=== PATIENT | male | born 1985 | race Caucasian/White ===

== ENCOUNTER 2018-12-13 14:44 | Inpatient (IN) | payer BC ==
[~2018-12-13 14:44] MED LIST: Dexamethasone 20 MG/5 ML VIAL ONE; ISOVUE-370 76%-LOCM 1 ML ONE; Ondansetron PF 4 MG/2 ML Vial ONE; PROPOFOL 200 MG/20 ML VIAL ONE; Rocuronium Bromide 10 MG/ML (10ML VIAL) ONE
[2018-12-13] MEDS ORDERED: Fentanyl 100 MCG/2 ML VIAL ONE ×4 (14:50→17:49)
[2018-12-13] MEDS ORDERED: Adacel (T-DAP) 0.5 ML SYRINGE ONE (15:00)
[2018-12-13 15:08] LABS: #Eosinphils 0.1 thou/uL (0.0-0.7); #Lymphocytes 1.8 thou/uL (1.20-3.40); #Monocytes 1.1 thou/uL (0.11-0.59); #Neutrophils 13.3 thou/uL (1.40-6.50); %Basophils 0.1 % (0.0-1.0); %Eosinophils 0.4 % (0.0-10.0); %Lymphocytes 11.3 % (21.0-51.0); %Monocytes 6.6 % (0.0-10.0); %Neutrophils 81.7 % (42.0-75.0); Hemoglobin 15.3 g/dL (14.0-18.0); Mean Corpuscular HGB CONC 35.3 g/dL (32.0-36.0); Mean Corpuscular Hemoglobin 32.7 pg (27.0-31.0); Mean Corpuscular Volume 92.8 fL (78.0-98.0); Mean Platelet Volume 7.5 fL (7.4-10.4); Platelet Count 221 thou/uL (130-400); RBC Distribution Width 11.7 % (11.5-14.5); Red Blood Cell (RBC) Count 4.67 mill/uL (4.70-6.10); White Blood Cell (WBC) Count 16.3 thou/uL (4.8-10.8)
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
[2018-12-13 15:25] LABS: PTT 23.3 SEC (22.9-36.1); Prothrombin Time 12.8 SEC (12.0-14.7)
[2018-12-13 15:29] LABS: ALT (SGPT) 22 U/L (8-55); AST (SGOT) 27 U/L (5-34); Albumin 4.5 g/dL (3.5-5.0); Alkaline Phosphatase 57 U/L (40-150); Anion Gap 15 mmol/L (10-20); BUN (Urea Nitrogen) 18 mg/dL (8.9-20.6); Bilirubin, Total 0.6 mg/dL (0.2-1.2); Calc. Creatinine Clearance 0 mL/min (70-130); Calcium 9.1 mg/dL (7.8-10.44); Carbon Dioxide 20 mmol/L (22-29); Chloride 107 mmol/L (98-107); Estimated GFR-MDRD 73; Globulin 2.7 g/dL (2.4-3.5); Glucose 108 mg/dL (70-105); Potassium 3.6 mmol/L (3.5-5.1); Protein, Total 7.2 g/dL (6.0-8.3); Sodium 138 mmol/L (136-145)
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
[2018-12-13] MEDS ORDERED: Ondansetron PF 4 MG/2 ML Vial ONE (16:21)
[2018-12-13] MEDS ORDERED: Morphine 4 MG/ML VIAL ONE ×2 (16:21→23:42)
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
[2018-12-13] MEDS ORDERED: Ondansetron ODT 4 MG TAB PO PRN (16:42)
[2018-12-13] MEDS ORDERED: Dextrose 50% Abboject 50 ML SYRINGE SLOW IVP PRN (16:42)
[2018-12-13] MEDS ORDERED: Morphine 4 MG/ML VIAL SLOW IVP PRN (16:42)
[2018-12-13] MEDS ORDERED: hydrALAZINE 20 MG/ML VIAL SLOW IVP PRN (16:42)
[2018-12-13] MEDS ORDERED: Dextrose 5% in Water 1,000 ML IV PRN (16:42)
[2018-12-13] MEDS ORDERED: Promethazine HCl 25 MG/ML VIAL IM PRN ×3 (16:42→23:27)
[2018-12-13] MEDS ORDERED: Morphine 2 MG/ML SYRINGE SLOW IVP PRN (16:42)
[2018-12-13] MEDS ORDERED: Ondansetron PF 4 MG/2 ML Vial IVP PRN (16:42)
[2018-12-13] MEDS ORDERED: traMADol HCl 50 MG TAB PO PRN ×2 (17:03)
--- NOTE | 2018-12-13 17:11 | RAD ---
Exam:Left ankle 2 views HISTORY: Status post reduction COMPARISON: 12/13/2018 FINDINGS: Limited evaluation of fine bony detail due to fiberglass cast. Previous noted displaced fra cture fragment and dislocation of the tibiotalar articulation have significantly improved based on images provided. IMPRESSION: Improved alignment.
--- NOTE | 2018-12-13 17:14 | RAD ---
Exam:Left elbow 2 view HISTORY: Status post irrigation COMPARISON: None FINDINGS: Posttraumatic changes of the soft tissue edema remain. There is evidence of subcutaneous em physema. Multiple well-corticated densities do project along the medial aspect of the elbow, the level of the proximal ulna. Foreign bodies cannot be excluded. Possible fracture fragment of uncertai n etiology is once again noted, posterior to the distal humerus. IMPRESSION: Posttraumatic changes as above
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
[2018-12-13] MEDS ORDERED: Midazolam HCl 2 mg/2 ml Vial ONE (17:55)
[2018-12-13] MEDS ORDERED: Fentanyl 250 MCG/5 ML VIAL ONE (17:55)
[2018-12-13] MEDS ORDERED: Gentamicin 80 MG/2 ML VIAL ONE (19:22)
[2018-12-13] MEDS ORDERED: SODIUM CHLORIDE IVPB SCH (19:30)
[2018-12-13] MEDS ORDERED: PENICILLIN POTASSIUM IVPB SCH (19:30)
[2018-12-13] MEDS ORDERED: HYDROmorphone 2 MG/ML VIAL ONE ×2 (21:28→23:49)
--- NOTE | 2018-12-13 21:59 | RAD ---
Exam: Left elbow 2 views: HISTORY: Postoperative irrigation left elbow FINDINGS: 2 portable fluoroscopic spot films are presented. There is some posterior injury with at least one sm all of foreign body improved from the prior study. The 2 large dense opacifications have been removed. IMPRESSION: Post irrigation left elbow.
--- NOTE | 2018-12-13 22:00 | RAD ---
Left ankle 2 views: HISTORY: ORIF left ankle Placement of metal plate and screws and cable stabilizing the distal tibia and fibula. IMPRESSION: Status post ORIF stabilizing the distal fibula and tibia.
[2018-12-13] MEDS ORDERED: HYDROmorphone 2 MG/ML VIAL SLOW IVP PRN (23:27)
[2018-12-13] MEDS ORDERED: PACU-Morphine 4MG/ML VIAL SLOW IVP PRN (23:27)
[2018-12-13] MEDS ORDERED: Ondansetron HCl/PF 4 MG/2 ML Vial IVP PRN (23:27)
[2018-12-13] MEDS ORDERED: Promethazine HCl 25 MG/ML VIAL SLOW IVP PRN (23:27)
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
[2018-12-14] MEDS ORDERED: Fentanyl 100 MCG/2 ML VIAL ONE ×2 (00:24→00:53)
[2018-12-14] MEDS ORDERED: diphenhydrAMINE 50 MG/ML VIAL IM PRN (00:40)
[2018-12-14] MEDS ORDERED: diphenhydrAMINE 25 MG CAP PO PRN (00:40)
[2018-12-14] MEDS ORDERED: diphenhydrAMINE 50 MG/ML VIAL IVP PRN (00:40)
[2018-12-14] MEDS ORDERED: Promethazine HCl 25 MG/ML VIAL IM PRN (00:40)
[2018-12-14] MEDS ORDERED: Naloxone HCl 0.4 mg/ml Vial IV PRN (00:40)
[2018-12-14] MEDS ORDERED: Ondansetron PF 4 MG/2 ML Vial IVP PRN (00:40)
[2018-12-14] MEDS ORDERED: Morphine CADD 1 MG/ML CADD IVPB PRN (00:40)
[2018-12-14] MEDS ORDERED: Communication Order-Pharmacy FS SCH (00:45)
[2018-12-14] MEDS ORDERED: Ketorolac Tromethamine 30 MG/ML VIAL ONE (00:46)
[2018-12-14] MEDS ORDERED: Morphine Sulfate 100 MG in Dextrose 5% in Water 98 ML IV SCH (00:47)
[2018-12-14] MEDS: Acetaminophen 500 MG TAB PO SCH ×5 (02:42→23:07)
[2018-12-14] MEDS: Ibuprofen 800 MG TAB PO SCH ×4 (02:44→23:00)
[2018-12-14] MEDS: Famotidine 20 MG TAB PO SCH ×3 (02:44→22:58)
[2018-12-14] MEDS: PENICILLIN POTASSIUM IVPB SCH ×3 (03:20→17:26)
[2018-12-14] MEDS: SODIUM CHLORIDE IVPB SCH ×3 (03:20→17:26)
[2018-12-14] MEDS: CEFAZOLIN 2 GM in Premix Bag 1 BAG IVPB SCH ×3 (05:35→23:00)
[2018-12-14] MEDS: Sodium Chloride 0.9% 1,000 ML IV SCH ×2 (05:36→10:33)
[2018-12-14] MEDS: Ketorolac Tromethamine 30 MG/ML VIAL IVP SCH ×4 (05:36→23:07)
[2018-12-14 05:54] VITALS: BMI 33.2
[2018-12-14 07:22] LABS: Anion Gap 10 mmol/L (10-20); BUN (Urea Nitrogen) 12 mg/dL (8.9-20.6); Calc. Creatinine Clearance 190 mL/min (70-130); Calcium 8.1 mg/dL (7.8-10.44); Carbon Dioxide 24 mmol/L (22-29); Chloride 105 mmol/L (98-107); Estimated GFR-MDRD Greater than 90; Glucose 129 mg/dL (70-105); Potassium 4.2 mmol/L (3.5-5.1); Sodium 135 mmol/L (136-145)
[2018-12-14 07:47] LABS: #Monocytes 1.3 thou/uL (0.11-0.59); #Neutrophils 14.2 thou/uL (1.40-6.50); %Eosinophils 0.1 % (0.0-10.0); %Lymphocytes 5.9 % (21.0-51.0); %Monocytes 7.8 % (0.0-10.0); %Neutrophils 86.1 % (42.0-75.0); Hemoglobin 13.8 g/dL (14.0-18.0); Mean Corpuscular HGB CONC 34.1 g/dL (32.0-36.0); Mean Corpuscular Hemoglobin 32.5 pg (27.0-31.0); Mean Corpuscular Volume 95.3 fL (78.0-98.0); Mean Platelet Volume 7.9 fL (7.4-10.4); Platelet Count 193 thou/uL (130-400); RBC Distribution Width 11.7 % (11.5-14.5); Red Blood Cell (RBC) Count 4.25 mill/uL (4.70-6.10); White Blood Cell (WBC) Count 16.5 thou/uL (4.8-10.8)
--- NOTE | 2018-12-14 10:31 | RAD ---
LEFT ANKLE 3 VIEWS: Date: 12/13/18 HISTORY: Postop. FINDINGS: These are C-arm projections which show open reduction and internal fixation of a distal fibular fract ure with plate and screws. There is also a tension device across the tibia and fibula, and pin placem ent in the region of the medial malleolus. IMPRESSION: Postoperative changes of the ankle. POS: [facility]
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
[2018-12-14] MEDS: Cyclobenzaprine 10 MG TAB PO PRN (23:00)
[2018-12-15] MEDS: CEFAZOLIN 2 GM in Premix Bag 1 BAG IVPB SCH ×3 (05:44→21:33)
[2018-12-15] MEDS: Ketorolac Tromethamine 30 MG/ML VIAL IVP SCH (05:44)
[2018-12-15] MEDS: Ibuprofen 800 MG TAB PO SCH ×3 (05:44→21:33)
[2018-12-15] MEDS: Acetaminophen 500 MG TAB PO SCH ×2 (05:44→19:47)
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
[2018-12-15] MEDS ORDERED: Enoxaparin Sodium 40 MG/0.4 ML SYRINGE SC SCH ×2 (09:00→21:00)
[2018-12-15 09:24] LABS: Anion Gap 11 mmol/L (10-20); BUN (Urea Nitrogen) 9 mg/dL (8.9-20.6); Calc. Creatinine Clearance 233 mL/min (70-130); Calcium 8.2 mg/dL (7.8-10.44); Carbon Dioxide 21 mmol/L (22-29); Chloride 112 mmol/L (98-107); Estimated GFR-MDRD Greater than 90; Glucose 78 mg/dL (70-105); Potassium 4.2 mmol/L (3.5-5.1); Sodium 140 mmol/L (136-145)
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
[2018-12-15] MEDS ORDERED: Midazolam HCl 2 mg/2 ml Vial ONE (11:31)
[2018-12-15] MEDS ORDERED: Fentanyl 100 MCG/2 ML VIAL ONE ×3 (11:31→14:31)
[2018-12-15] MEDS ORDERED: CEFAZOLIN 2 GM in Premix Bag 1 BAG IVPB SCH (14:00)
[2018-12-15] MEDS ORDERED: Ondansetron HCl/PF 4 MG/2 ML Vial IVP PRN (14:29)
[2018-12-15] MEDS ORDERED: Promethazine HCl 25 MG/ML VIAL IM PRN (14:29)
[2018-12-15] MEDS ORDERED: Promethazine HCl 25 MG/ML VIAL SLOW IVP PRN (14:29)
[2018-12-15] MEDS ORDERED: HYDROcodone/Acetaminophen 10/325 mg Tablet PO PRN (14:59)
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
[2018-12-15] MEDS ORDERED: Bupivacaine HCl 0.5%/Epinephrine 1:200,000/PF 30 ml Vial ONE (15:58)
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
[2018-12-15] MEDS ORDERED: Lidocaine 1% PF 5 ML VIAL ONE (16:26)
[2018-12-15] MEDS ORDERED: PROPOFOL 200 MG/20 ML VIAL ONE (16:26)
[2018-12-15] MEDS ORDERED: Rocuronium Bromide 10 MG/ML (10ML VIAL) ONE (16:26)
[2018-12-15] MEDS: Fentanyl 100 MCG/2 ML VIAL SLOW IVP PRN ×2 (17:29→20:29)
[2018-12-15] MEDS ORDERED: Acetaminophen 500 MG TAB PO PRN (18:26)
[2018-12-15] MEDS: Famotidine 20 MG TAB PO SCH ×2 (18:45→20:25)
[2018-12-15] MEDS: HYDROcodone/Acetaminophen 10/325 mg Tablet PO PRN (20:25)
[2018-12-15] MEDS: Cyclobenzaprine 10 MG TAB PO PRN (20:25)
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
[2018-12-16] MEDS: Fentanyl 100 MCG/2 ML VIAL SLOW IVP PRN ×4 (00:03→08:25)
[2018-12-16] MEDS: Ibuprofen 800 MG TAB PO SCH ×3 (05:11→21:16)
[2018-12-16] MEDS: Cyclobenzaprine 10 MG TAB PO PRN ×2 (05:11→21:57)
[2018-12-16] MEDS: HYDROcodone/Acetaminophen 10/325 mg Tablet PO PRN ×3 (05:12→20:14)
[2018-12-16] MEDS: CEFAZOLIN 2 GM in Premix Bag 1 BAG IVPB SCH ×3 (05:12→21:17)
[2018-12-16] MEDS ORDERED: Morphine 4 MG/ML VIAL SLOW IVP SCH (06:15)
[2018-12-16] MEDS: Famotidine 20 MG TAB PO SCH ×2 (08:15→20:14)
[2018-12-16] MEDS ORDERED: traMADol HCl 50 MG TAB PO PRN (09:20)
[2018-12-16] MEDS ORDERED: traMADol HCl 50 MG TAB PO SCH (09:30)
[2018-12-16] MEDS ORDERED: HYDROcodone/Acetaminophen 5/325 mg Tablet PO SCH (09:30)
[2018-12-16] MEDS ORDERED: HYDROcodone/Acetaminophen 10/325 mg Tablet PO PRN ×2 (10:21)
[2018-12-16] MEDS: Gabapentin 300 MG CAP PO SCH ×3 (10:35→20:14)
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
[2018-12-16] MEDS: Senokot S 8.6-50 MG TAB PO SCH (20:14)
[2018-12-16] MEDS ORDERED: Enoxaparin Sodium 40 MG/0.4 ML SYRINGE SC SCH (21:00)
[2018-12-16] MEDS ORDERED: Senokot S 8.6-50 MG TAB PER TUBE SCH (21:00)
[2018-12-17] MEDS: Ibuprofen 800 MG TAB PO SCH ×2 (05:33→12:51)
[2018-12-17] MEDS: HYDROcodone/Acetaminophen 10/325 mg Tablet PO PRN ×2 (05:34→09:54)
[2018-12-17] MEDS: Famotidine 20 MG TAB PO SCH (09:00)
[2018-12-17] MEDS: Gabapentin 300 MG CAP PO SCH (09:00)
[2018-12-17] MEDS: Senokot S 8.6-50 MG TAB PO SCH (09:00)
[2018-12-17 11:57] VITALS: BP 152/91; TEMP 97.6
== END 2018-12-17 13:43 | disposition home or self-care (01) | DRG 493 ==
LOC: ERS 14:44 → SDC/OP 18:00 → SURG A 20:07
PROVIDERS: ADMIT Orthopaedic Surgery; ATTEND Orthopaedic Surgery
PROC: 0QSK04Z Reposition Left Fibula with Internal Fixation Device, Open Approach (ICD-10-PCS; principal; 2018-12-13)
PROC: 0SSG04Z Reposition Left Ankle Joint with Internal Fixation Device, Open Approach (ICD-10-PCS; 2018-12-13)
PROC: 0MQR0ZZ Repair Left Ankle Bursa and Ligament, Open Approach (ICD-10-PCS; 2018-12-13)
PROC: 0R9M0ZZ Drainage of Left Elbow Joint, Open Approach (ICD-10-PCS; 2018-12-13)
PROC: 0KX Muscles, Transfer (ICD-10-PCS; 2018-12-13)
PROC: 0PSQXZZ Reposition Left Metacarpal, External Approach (ICD-10-PCS; 2018-12-13)
PROC: 0KQB0ZZ Repair Left Lower Arm and Wrist Muscle, Open Approach (ICD-10-PCS; 2018-12-15)
DX: S82.492A Other fracture of shaft of left fibula, initial encounter for closed fracture (principal); S32.028A Other fracture of second lumbar vertebra, initial encounter for closed fracture; S32.038A Other fracture of third lumbar vertebra, initial encounter for closed fracture; S32.048A Other fracture of fourth lumbar vertebra, initial encounter for closed fracture; S93.05XA Dislocation of left ankle joint, initial encounter; S62.390A Other fracture of second metacarpal bone, right hand, initial encounter for closed fracture; J45.909 Unspecified asthma, uncomplicated; S41.122A Laceration with foreign body of left upper arm, initial encounter; V29.49XA Motorcycle driver injured in collision with other motor vehicles in traffic accident, initial encounter; Y93.I9 Activity, other involving external motion
CPT/HCPCS: 36415; 70450; 71045; 71260; 72125; 72170; 74177; 76000; 80048; 80053; 83605; 85025; 85610; 85730; 86850; 86900; 86901; 90471; 90715; 90732; 93005; C1713; G0009; G0390; J0360; J0670; J0690; J1100; J1170; J1200; J1580; J1650; J1885; J2001; J2250; J2270; J2274; J2405; J2540; J2704; J3010; J3490; J7070; Q9966